=== PATIENT | female | born 1970 | race Caucasian/White ===

== ENCOUNTER → 2018-06-29 | Day surgery (SDC) | payer BC ==
[~2018-06-29] MED LIST: Lactated Ringers 1,000 ML IV SCH; Propofol 200 MG/20 ML SDV IV ONE
--- NOTE | 2018-06-29 11:41 | OR ---
DATE OF OPERATION: 06/29/2018 PREOPERATIVE DIAGNOSIS: MELENA, EPIGASTRIC PAIN. POSTOPERATIVE DIAGNOSIS: MELENA, EPIGASTRIC PAIN. SURGEON: David Garcia MD PROCEDURE: EGD WITH BIOPSY X2, ARY, POLYP REMOVAL X1. 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 COMPLICATIONS: None. SPECIMEN: 1. Antral biopsy x2. 2. ARY. 3. Benign adenomatous polyp in fundus. FINDINGS: 1. Full-length EGD. 2. Antral gastritis, acute without signs of ulceration, erosion, or active bleeding. 3. Small adenomatous polyp, upper fundus. 4. Spontaneous GERD without hernia, esophagitis, or Perez's changes. RECOMMENDATIONS: The patient will be placed on proton pump therapy and have close followup with her provider, Dr. Vishal Bowen in [place]. INDICATIONS: The patient had presented to Dr. Bowen's office with abdominal pain in the mid epigastric region with melenic stools. He sent her for diagnostic EGD. DESCRIPTION OF PROCEDURE: The patient was prepped and draped, placed in the left lateral decubitus position. A lubricated Olympus gastroscope inserted over a bit and advanced to cricopharyngeus area, and easily intubated into the esophagus. Esophageal lining was benign in its entire course. The Z-line was crisp and sharp at 39 cm. There was no distal esophagitis, stricturing, ulceration, or Perez's changes. No hernia seen. The patient does have some spontaneous reflux. The scope was advanced into the stomach, through the pylorus, and into the second portion of the duodenum. This and the duodenal bulb were completely benign. The scope was brought back into the stomach and retroflexed. The upper fundus and cardia essentially were unremarkable. The patient had a small adenomatous polyp in the upper fundus which was removed with 2 forceps at the stalk and removed in its entirety. The rest of the fundus appeared benign. The patient does have acute gastritis at the antrum without any active bleeding, erosions, or ulcerations. Two biopsies were taken along with a CLOtest. Air was then suctioned from the stomach and the scope was removed without complication. AMBROSE/JOHNATHAN /[id number] cc: Vishal Bowen MD [address] [id number]
== END ==
LOC: CC.SDS 06:47
PROVIDERS: ATTEND Family Medicine
DX: K29.51 Unspecified chronic gastritis with bleeding (principal); K31.7 Polyp of stomach and duodenum; E66.9 Obesity, unspecified; K21.9 Gastro-esophageal reflux disease without esophagitis
CPT/HCPCS: 87081; J2704; J7120